=== PATIENT | male | born 1995 | race Caucasian/White ===

== ENCOUNTER 2021-09-05 07:36 | Outpatient (CLI) | payer OTHER | END 2021-09-05 07:37 | disposition home or self-care (01) | LOC: CSHULT 07:36 | PROVIDERS: ATTEND Family Medicine | DX: R74.01 Elevation of levels of liver transaminase levels (principal) | CPT/HCPCS: 76705 ==

== ENCOUNTER 2024-10-11 17:06 | Emergency (ER) | payer SELFPAY ==
[2024-10-11] MEDS ORDERED: Ondansetron PF 4 MG/2 ML Vial ONE (17:37)
[2024-10-11] MEDS ORDERED: Morphine 4 MG/ML VIAL ONE ×2 (17:37→18:05)
[2024-10-11] MEDS ORDERED: diphenhydrAMINE 50 MG/ML VIAL ONE (17:45)
[2024-10-11] MEDS ORDERED: methylPREDNISolone Sod Succ 40 MG VIAL ONE (17:45)
[2024-10-11] MEDS ORDERED: Famotidine/PF 20 mg/2ml Vial ONE (17:45)
[2024-10-11 18:10] LABS: #Basophils 0.08 10x3/uL (0.0-0.2); #Eosinophils 0.41 10x3/uL (0.0-0.5); #Monocytes 0.99 10x3/uL (0.0-1.1); #Neutrophils 4.24 10x3/uL (1.5-8.4); %Basophils 0.8 % (0.0-2.0); %Lymphocytes 43.2 % (18.0-47.0); %Monocytes 9.8 % (0.0-10.0); %Neutrophils 41.9 % (40.0-75.0); Hematocrit 45.7 % (38.8-50.0); Mean Corpuscular Volume 85.6 fL (81.2-95.1); Mean Platelet Volume 10.1 fL (7.4-10.4); Platelet Count 318 10x3/uL (150-450); RBC Distribution Width 13.1 % (11.5-14.5); Red Blood Cell (RBC) Count 5.34 10x6/uL (4.32-5.72); White Blood Cell (WBC) Count 10.1 10x3/uL (3.5-10.5)
[2024-10-11 18:30] LABS: ALT (SGPT) 516 U/L (8-55); AST (SGOT) 200 U/L (5-34); Albumin 4.5 g/dL (3.5-5.0); Alkaline Phosphatase 95 U/L (40-110); Anion Gap 19 mmol/L (10-20); BUN (Urea Nitrogen) 20 mg/dL (8.9-20.6); Bilirubin, Total 0.6 mg/dL (0.2-1.2); Calc. Creatinine Clearance 0 mL/min (70-130); Calcium 10.3 mg/dL (7.8-10.44); Carbon Dioxide 20 mmol/L (22-29); Chloride 105 mmol/L (98-107); Estimated GFR 99; Globulin 4.2 g/dL (2.4-3.5); Glucose 108 mg/dL (70-105); Lipase 28 U/L (8-78); Potassium 3.6 mmol/L (3.5-5.1); Protein, Total 8.7 g/dL (6.0-8.3); Sodium 140 mmol/L (136-145)
[2024-10-11] MEDS ORDERED: fentaNYL 50 mcg/mL 1 mL Vial ONE ×2 (18:37→19:49)
[2024-10-11] MEDS ORDERED: Ketorolac Tromethamine 30 MG (1 mL) VIAL ONE (19:49)
[2024-10-11 21:49] LABS: Bilirubin Neg (Negative); Blood, Urine 150 (Negative); Clarity Clear (Clear); Glucose, Urine (Dipstick) Normal (Negative); Ketone, Urine Negative (Negative); Leukocyte Negative (Negative); Nitrite Negative (Negative); Protein, Urine (Dipstick) 30 mg/dl (Neg-Trace); Urobilinogen Normal mg/dL (Less than 2)
[2024-10-11 22:22] LABS: Bacteria/HPF Rare-Few HPF (None Seen); CAUTI Indications for Culture Pelvic or flank pain; RBC/HPF 21-50 HPF (0-3); Squamous Epithelial 0-3 HPF (0-3); WBC/HPF 0-3 HPF (0-3)
[2024-10-11 22:23] LABS: Urine Culture Reflex No No
== END 2024-10-11 22:51 | disposition home or self-care (01) ==
LOC: CSHERS 17:06
DX: N20.0 Calculus of kidney (principal)
CPT/HCPCS: 74177; 80053; 81001; 83690; 85025; 96361; 96374; 96375; 96376; J1200; J1885; J2272; J2405; J2919; J3010; J3490